=== PATIENT | female | born 2000 | race Caucasian/White ===

== ENCOUNTER 2022-03-03 10:54 | Emergency (ER) | payer OTHER ==
[~2022-03-03] VITALS: Ht 175 cm; Wt 73.0 kg
[2022-03-03 11:00] VITALS: BP 155/77
--- NOTE | 2022-03-03 11:21 | ED Integumentary General ---
General Chief Complaint: Laceration Stated Complaint: L PINKY LAC Nursing Triage Note: PT WOKE UP WITH A LACERATION TO THE LEFT 5TH FINGER. STATES SHE WAS DRUNK AND DOES NOT REMEMBER WHAT HAPPENED. THINKS SHE MIGHT HAVE FELL OFF THE BED AND CUT IT ON A BEER BOTTLE. Source: patient Exam Limitations: no limitations History of Present Illness Date Seen by Provider: Mar 03, 2022 Time Seen by Provider: 11:05 Initial Comments 21 yo female presents to the ER with a complaint of laceration to the left 5th finger - pain and decreased ability to flex the finger. She was at a [employer] last night and is not sure what she cut it on. Friend at the bedside says that she thinks she rolled out of bed and cut her finger on a broken beer bottle. Complains of pain only to the finger. Is noted to have multiple other superficial lacerations to bilateral LE's but has no complaints of pain or other injury or illness. All other ROS reviewed and neg except as stated. Last tetanus 2013. Timing/Duration: other (unknown) Location: hands (left 5th finger) Possible Cause: other (unknown) Associated Symptoms: denies symptoms Allergies and Home Medications Allergies Coded Allergies: No Known Drug Allergies (Unverified , 03/03/22) Patient Home Medication List Home Medication List Reviewed: Yes Review of Systems Review of Systems Constitutional: see HPI Respiratory: no symptoms reported Cardiovascular: no symptoms reported Gastrointestinal: no symptoms reported Musculoskeletal: other (pain in the left 5th finger) Skin: other (laceration) Psychiatric/Neurological: Paresthesia (tip of left 5th finger) All Other Systems Reviewed Negative Unless Noted: Yes Past Icfketa-Asxggd-Hkmcwc Hx Patient Social History Smoking Status: Never a Smoker Substance use?: Yes Substance type: Marijuana Alcohol Use?: Yes Alcohol Frequency: Couple times a week Physical Exam Vital Signs Vital Signs - First Documented 03/03/22 11:00 Temp 36.3 Pulse 81 Resp 16 B/P (MAP) 155/77 (103) Pulse Ox 97 O2 Delivery Room Air Capillary Refill : Less Than 3 Seconds General Appearance: WD/WN, no apparent distress HEENT: PERRL/EOMI Cardiovascular: regular rate, rhythm Respiratory: lungs clear, normal breath sounds, no respiratory distress, no accessory muscle use Extremities: normal range of motion, other (ecchymoses circumferential left 5th finger; laceration 5cm lateral aspect of 5th finger, subcutaneous fat visible in the wound, no active bleeding) Neurologic/Psychiatric: alert, normal mood/affect, oriented x 3 Skin: normal color, warm/dry Procedures/Interventions Wound Location: Upper Extremities Other Wound Location left hand lateral edge of 5th finger Wound Length (cm): 5 Wound's Depth, Shape: superficial, irregular, sub Q Wound Explored: clean Irrigated w/ Saline (ccs): 250 Betadine Prep?: Yes Anesthesia: 1% Lidocaine Volume Anesthetic (ccs): 4 Wound Debrided: minimal Suture: Ethlion Suture Size: 4-0 Number of Sutures: 9 Layer Closure?: 1 Number Deep Layer Sutures: 0 Sterile Dressing Applied?: Yes Progress/Results/Core Measures Results/Orders My Orders Orders - CORNELIUS CODY MD Lidocaine 1% Inj 20 Ml (Xylocaine 1% Inj (03/03/22 11:45) Lidocaine 1% Inj 20 Ml (Xylocaine 1% Inj (03/03/22 11:35) Dipht,Pertuss(Acell),Tet Adult (Boostrix (03/03/22 12:15) Ibuprofen Tablet (Motrin Tablet) (03/03/22 12:15) Hand, Left, 2 Views (03/03/22 12:04) Medications Given in ED Current Medications Medications Dose Ordered Sig/Rafa Route Start Time Stop Time Status Last Admin Dose Admin Diphtheria/ Tetanus/Acell Pertussis 0.5 ml ONCE ONCE IM 03/03/22 12:15 03/03/22 12:16 DC 03/03/22 12:09 0.5 ML Lidocaine HCl 20 ml ONCE ONCE INJ 03/03/22 11:45 03/03/22 11:46 DC 03/03/22 12:09 20 ML Vital Signs/I&O 03/03/22 11:00 Temp 36.3 Pulse 81 Resp 16 B/P (MAP) 155/77 (103) Pulse Ox 97 O2 Delivery Room Air Blood Pressure Mean: 103 Diagnostic Imaging Diagonstic Imaging: Xray Comments [facility], [place] NAME: VALERI GRAHAM Christiano [facility] REC#: [id number] PT STATUS: REG ER : 2002 PHYSICIAN: CORNELIUS CODY MD ADMIT DATE: 08/20/22/ER Draft Date of Exam:03/03/22 HAND, LEFT, 2 VIEWS Indication: Laceration to left 5th finger. Time of Exam: 12:09 PM 2 views of the left hand were obtained. The metacarpals are intact. Phalanges appear intact. No fractures are identified. Impression: No acute abnormality is detected. Dictated on workstation # [id number] Dict: 03/03/22 1221 Trans: 03/03/22 1223 [facility] [id number] Interpreted by: RASHEL MURO MD Electronically signed by: Departure Impression Primary Impression: laceration left 5th finger Disposition: HOME, SELF-CARE Condition: Stable Departure-Patient Inst. Decision time for Depature: 12:10 Referrals: [facility],LOCAL PHYSICIAN (PCP) Primary Care Physician Patient Instructions: Laceration Repair With Stitches (DC) Add. Discharge Instructions: Keep the dressing in place for the next 12-24 hours. You can wash it gently with soap and water starting tomorrow. A little antibiotic ointment under the dressing daily for 2/4 days. Do not swim at all or submerge in dishwater for the next 5 days. If it starts to look infected, swell, turn red, drain pus or streak up your hand, please come back to the Emergency Department for re-evaluation and antibiotics. Ibuprofen, 800mg (4 over the counter pills) every 8 hours with food as needed for pain. Ice for swelling. Stitches come out in 12-14 days. You can come back to the Emergency Department to get these out, it is part of this visit. CORNELIUS CODY MD Mar 03, 2022 11:21
[2022-03-03] MEDS ORDERED: LIDOCAINE 1% INJ 20 ML VIAL ONE (11:35)
[2022-03-03] MEDS ORDERED: LIDOCAINE 1% INJ 20 ML VIAL INJ ONE (11:45)
[2022-03-03] MEDS ORDERED: TETANUS,DIPTH,PERTUSS P/F (BOOSTRIX) 0.5 ML VIAL IM ONE (12:15)
[2022-03-03] MEDS ORDERED: IBUPROFEN 800 MG (MOTRIN) TAB PO ONE (12:15)
--- NOTE | 2022-03-03 12:24 | Diagnostic Imaging Report ---
Indication: Laceration to left 5th finger. Time of Exam: 12:09 PM 2 views of the left hand were obtained. The metacarpals are intact. Phalanges appear intact. No fractures are identified. Impression: No acute abnormality is detected. Dictated by: Dictated on workstation # [id number]
== END 2022-03-03 12:34 | disposition home or self-care (01) ==
LOC: ER 10:57
DX: S61.217A Laceration without foreign body of left little finger without damage to nail, initial encounter (principal); Z23 Encounter for immunization; Z28.310 Unvaccinated for COVID-19; W26.8XXA Contact with other sharp object(s), not elsewhere classified, initial encounter; Y92.89 Other specified places as the place of occurrence of the external cause
CPT/HCPCS: 12001; 73120; 90715

== ENCOUNTER 2022-03-05 16:53 | Emergency (ER) | payer OTHER ==
[2022-03-05] MEDS ORDERED: DOXY100T2 PO (17:32)
--- NOTE | 2022-03-05 17:34 | ED Integumentary General ---
General Chief Complaint: Skin/Wound Problems Stated Complaint: L PINKY FINGER LAC INFECTION Source: patient Exam Limitations: no limitations History of Present Illness Date Seen by Provider: Mar 05, 2022 Time Seen by Provider: 17:29 Initial Comments To ER with concern of infection to the laceration to the ulnar side of the pinky finger laceration left hand 2 to 3 days ago. Timing/Duration: just prior to arrival Severity: moderate Possible Cause: no cause identified Associated Symptoms: denies symptoms Allergies and Home Medications Allergies Coded Allergies: No Known Drug Allergies (Unverified , 03/03/22) Patient Home Medication List Home Medication List Reviewed: Yes Doxycycline Hyclate (Doxycycline Hyclate) 100 Mg Tablet, 100 MG PO BID Prescribed by: MACARIO CACERES on 03/05/22 5903 Review of Systems Review of Systems Constitutional: see HPI EENTM: see HPI Respiratory: no symptoms reported Cardiovascular: no symptoms reported Genitourinary: no symptoms reported Musculoskeletal: no symptoms reported Skin: no symptoms reported Past Uzdzklo-Blbrkl-Juwytp Hx Patient Social History Tobacco Use?: No Use of E-Cig and/or Vaping dev: No Substance use?: Yes Substance type: Marijuana Substance frequency: Once in a while Alcohol Use?: Yes Alcohol Frequency: Once in a while Pt feels they are or have been: No Immunizations Up To Date Influenza Vaccine Up-to-Date: No; Not Current Physical Exam Vital Signs Vital Signs - First Documented 03/05/22 17:05 Pulse 63 Resp 14 B/P (MAP) 122/65 (84) Capillary Refill : General Appearance: WD/WN, no apparent distress Respiratory: no respiratory distress, no accessory muscle use Extremities: normal range of motion, non-tender, other (Limited flexion and extension of the pinky finger. Slightly swollen. Erythema is primarily over the ulnar side of the pinky finger at the incision line and extending out about 3 mm from the laceration itself. Sutures remain intact. There is no erythema of the palmar or dorsal surface. Culture of laceration collected. Minimal amount of serosanguineous material at the proximal portion.) Neurologic/Psychiatric: alert, normal mood/affect, oriented x 3 Skin: normal color, warm/dry Skin Problem Location: upper extremities Skin Problem Character: other Procedures/Interventions Suture Size: 4-0 Progress/Results/Core Measures Results/Orders My Orders Orders - MACARIO CACERES APRN Wound Culture (03/05/22 17:29) Vital Signs/I&O 03/05/22 17:05 Pulse 63 Resp 14 B/P (MAP) 122/65 (84) Departure Impression Primary Impression: Wound infection Disposition: 01 HOME, SELF-CARE Condition: Stable Departure-Patient Inst. Decision time for Depature: 17:29 Referrals: NO,LOCAL PHYSICIAN (PCP/Family) Primary Care Physician Patient Instructions: Wound Care (DC) Add. Discharge Instructions: Oral antibiotics as directed, beware they can cause sun sensitivity so avoid tanning beds or obtaining outside in the meantime until you stop the antibiotics. Expect about 2 days before you notice improvement. Return to ER for any worsening symptoms. If this does develop into an infection we may need to remove some or all of the stitches early which will cause a longer healing time but may be necessary in the setting of infection. Culture is pending and that will take about 48 hours to come back. Try to leave this open to air during the day and cover it at night It is very important that you follow up with a physician as discussed during the visit today. Failure to adhere to your follow-up instructions may lead to severe disability, injury, or so please make sure to keep your appointments or obtain one as requested. All discharge instructions reviewed with patient and/or family. Voiced understanding. Scripts Doxycycline Hyclate (Doxycycline Hyclate) 100 Mg Tablet 100 MG PO BID, #14 TAB 0 Refills Prov: MACARIO CACERES APRN 03/05/22 MACARIO CACERES APRN Mar 05, 2022 17:34
[2022-03-05 17:42] VITALS: BP 122/65
== END 2022-03-05 17:40 | disposition home or self-care (01) ==
LOC: EDUNIT# 16:53 → ER 16:54
DX: S61.317A Laceration without foreign body of left little finger with damage to nail, initial encounter (principal); L08.9 Local infection of the skin and subcutaneous tissue, unspecified; Z28.310 Unvaccinated for COVID-19; X58.XXXA Exposure to other specified factors, initial encounter
CPT/HCPCS: 87070; 87205; 99282

== ENCOUNTER 2022-03-16 09:24 | Emergency (ER) | payer OTHER ==
[~2022-03-16] VITALS: Ht 175.3 cm; Wt 74.8 kg
[~2022-03-16 09:24] MED LIST: DOXY100T2 PO
[2022-03-16 09:31] VITALS: BP 124/76
== END 2022-03-16 09:40 | disposition home or self-care (01) ==
LOC: EDUNIT# 09:24 → ER 09:26
DX: Z48.02 Encounter for removal of sutures (principal); Z28.310 Unvaccinated for COVID-19

== ENCOUNTER 2022-04-28 01:18 | Emergency (ER) | payer OTHER ==
[~2022-04-28] VITALS: Ht 175 cm; Wt 74.8 kg
[2022-04-28 01:22] VITALS: BP 130/100
[2022-04-28] MEDS ORDERED: ONDANSETRON 4 MG/2 ML (SDV) Z0FRAN ONE (01:25)
--- NOTE | 2022-04-28 02:07 | ED General ---
General Chief Complaint: Substance Abuse Stated Complaint: INTOXICATED Nursing Triage Note: brought in by [facility] for etoh intoxication. pt covered in vomit. Source of Information: EMS Exam Limitations: Intoxication History of Present Illness Date Seen by Provider: Apr 28, 2022 Time Seen by Provider: 01:22 Initial Comments PT ARRIVES VIA EMS FROM LOCAL BAR PT IS INTOXICATED AND VOMITING NO REPORTED INJURY NO OTHER INFORMATION OBTAINABLE AT THIS TIME. Allergies and Home Medications Allergies Coded Allergies: No Known Drug Allergies (Unverified , 03/03/22) Patient Home Medication List Home Medication List Reviewed: Yes Doxycycline Hyclate (Doxycycline Hyclate) 100 Mg Tablet, 100 MG PO BID Prescribed by: MACARIO CACERES on 03/05/22 783 Review of Systems Review of Systems Constitutional: other (PER HPI) Gastrointestinal: vomiting Past Cwqghwl-Vcvrdf-Kigpbp Hx Patient Social History Tobacco Use?: Yes Substance use?: No Alcohol Use?: Yes Pt feels they are or have been: No Past Medical History Surgery/Hospitalization HX: pots, anxiety, depression Physical Exam Vital Signs Vital Signs - First Documented 04/28/22 01:22 Temp 36.7 Pulse 94 Resp 18 B/P (MAP) 130/100 (110) Pulse Ox 97 O2 Delivery Room Air Capillary Refill : Less Than 3 Seconds Height, Weight, BMI Height: '" Weight: lbs. oz. kg; 24.00 BMI Method:Actual General Appearance: Other (PT IS COVERED IN VOMIT, REEKS OF ALCOHOL AND APPEARS INTOXICATED. SHE IS BELLIGERENT AND UNCOOPERATIVE. ) HEENT: PERRL/EOMI Respiratory: Normal Breath Sounds, No Accessory Muscle Use, No Respiratory Distress Cardiovascular: Regular Rate, Rhythm Gastrointestinal: Soft Extremity: Normal Capillary Refill, Normal Inspection, Non Tender Neurologic/Psychiatric: Other (PT IS AWAKE, SPEECH IS FAIRLY CLEAR. U NCOOPERATIVE FOR EXAM AND HISTORY. APPEARS INTOXICATED. NO FOCAL DEFICITS. ) Skin: Normal Color, Warm/Dry, Other (NO EXTERNAL EVIDENCE OF TRAUMA. ) Procedures/Interventions Suture Size: 4-0 Progress/Results/Core Measures Suspected Sepsis SIRS Temperature: Pulse: 94 Respiratory Rate: 18 Blood Pressure 130 /100 Mean: 110 Results/Orders My Orders Orders - CHATO OBANDO DO Ondansetron Injection (Zofran Injectio (04/28/22 01:25) Medications Given in ED Current Medications Medications Dose Ordered Sig/Rafa Route Start Time Stop Time Status Last Admin Dose Admin Ondansetron HCl 4 mg STK-MED ONCE .ROUTE 04/28/22 01:25 04/28/22 01:28 DC 04/28/22 01:27 8 MG Vital Signs/I&O 04/28/22 01:22 Temp 36.7 Pulse 94 Resp 18 B/P (MAP) 130/100 (110) Pulse Ox 97 O2 Delivery Room Air Capillary Refill : Less Than 3 Seconds Blood Pressure Mean: 110 Progress Note : Progress Note GIVEN ZOFRAN IV, IV FLUIDS THAT WERE STARTED BY EMS WERE CONTINUED. PT REMAINS BELLIGERENT AND UNCOOPERATIVE, AND STATES SHE WANTS TO LEAVE AND DOES NOT NEED TO BE HERE. UNABLE TO OBTAIN ANY LAB PT IS ABLE TO STAND AND GET INTO WHEELCHAIR, AND SPEECH IS FAIRLY CLEAR. SISTER AND A MULTITUDE OF OTHER FRIENDS IN WAITING ROOM TO TAKE PT HOME. PT LEFT WITHOUT SIGNING AMA FORM. Departure Impression Primary Impression: Acute alcoholic intoxication Disposition: AGAINST MEDICAL ADVICE Condition: Against Medical Advice Departure-Patient Inst. Referrals: NO,LOCAL PHYSICIAN (PCP/Family) Primary Care Physician Patient Instructions: ALCOHOL AND SUBSTANCE ABUSE Add. Discharge Instructions: All discharge instructions reviewed with patient and/or family. Voiced understanding. CHATO OBANDO DO Apr 28, 2022 02:07
== END 2022-04-28 01:38 | disposition left against medical advice (07) ==
LOC: EDUNIT# 01:18 → ER 01:19
DX: F10.129 Alcohol abuse with intoxication, unspecified (principal); Z72.0 Tobacco use

== ENCOUNTER 2022-09-15 05:32 | Observation (INO) | payer OTHER ==
[~2022-09-15] VITALS: Ht 172.7 cm; Wt 71.7 kg
[2022-09-15] MEDS ORDERED: NS IV 1000 ML 1,000 ML IV STA (05:55)
--- NOTE | 2022-09-15 05:55 | ED General ---
General Stated Complaint: PASSED OUT Source of Information: Patient Exam Limitations: Intoxication (CORNELIUS CODY MD) History of Present Illness Date Seen by Provider: Sep 15, 2022 Time Seen by Provider: 05:50 Initial Comments Patient is a 21-year-old female who presents to the emergency room by private vehicle chief complaint multiple syncopal episodes throughout the night. Patient is obviously intoxicated, slurred speech, glassy eyed. She states that she has been drinking and using some marijuana she tells me she has a history of vasovagal syncope. Been cardiac work-up at including echo, tilt table and other testing she cannot remember. She is supposed to be on fludrocortisone and is also on an antidepressant. Denies recent illness. No cough, congestion. No nausea. She states she has "dry mouth". No dysuria, urgency or frequency. No diarrhea. States that she missed her daily medications last evening. Is quite tachycardic with a sinus rhythm in the 140s. Adequate blood pressure and pulse oximetry. Did "pass out" in front of the nurses. This was brief. No altered mentation once awakened. Patient states normally she only has syncopal events once every 2 weeks. Timing/Duration: 12 Hours Severity: Severe Associated Systoms: Shortness of Air, Syncope, Other (dry mouth) (CORNELIUS CODY MD) Allergies and Home Medications Allergies Coded Allergies: No Known Drug Allergies (Unverified , 03/03/22) Patient Home Medication List Home Medication List Reviewed: Yes (CORNELIUS CODY MD) Doxycycline Hyclate (Doxycycline Hyclate) 100 Mg Tablet, 100 MG PO BID Prescribed by: MACARIO CACERES on 03/05/22 1155 Review of Systems Review of Systems Constitutional: see HPI EENTM: no symptoms reported Respiratory: short of breath Cardiovascular: no symptoms reported Gastrointestinal: no symptoms reported Genitourinary: no symptoms reported Musculoskeletal: no symptoms reported Skin: no symptoms reported (CORNELIUS CODY MD) All Other Systems Reviewed Negative Unless Noted: Yes (CORNELIUS CODY MD) Past Kqygpot-Smornl-Izlqoz Hx Past Medical History Surgery/Hospitalization HX: pots, anxiety, depression (CORNELIUS CODY MD) Physical Exam Vital Signs Capillary Refill : Height, Weight, BMI Height: '" Weight: lbs. oz. kg; 24.00 BMI Method:Actual General Appearance: No Apparent Distress, WD/WN Eyes: Bilateral Eye PERRL, Bilateral Eye EOMI, Bilateral Eye Other (injected conjunctivae) Neck: Normal Inspection Respiratory: Lungs Clear, Normal Breath Sounds, No Accessory Muscle Use, No Respiratory Distress Cardiovascular: Regular Rate, Rhythm, Tachycardia (140) Gastrointestinal: Normal Bowel Sounds, Non Tender, Soft Extremity: Normal Capillary Refill, Normal Inspection, Normal Range of Motion, Non Tender Neurologic/Psychiatric: Alert, Oriented x3, Other (obvious intoxication; slurred speech) Skin: Normal Color, Warm/Dry (CORNELIUS CODY MD) Vital Signs Vital Signs - First Documented 09/15/22 05:35 Temp 36.6 Pulse 141 Resp 18 B/P (MAP) 143/100 (114) (CINDY RIBEIRO DO) Procedures/Interventions Suture Size: 4-0 (CORNELIUS CODY MD) Progress/Results/Core Measures Suspected Sepsis SIRS Temperature: Pulse: Respiratory Rate: Laboratory Tests 09/15/22 05:30: Blood Pressure / Mean: Laboratory Tests 09/15/22 05:30: (CORNELIUS CODY MD) SIRS Laboratory Tests 09/15/22 05:30: White Blood Count 6.6 Laboratory Tests 09/15/22 05:30: Creatinine 0.81, Platelet Count 265, Total Bilirubin 0.3 (CINDY RIBEIRO DO) Results/Orders Lab Results Laboratory Tests Test 09/15/22 05:30 09/15/22 06:05 Range/Units My Orders Orders - CORNELIUS CODY MD Ekg Tracing (09/15/22 05:55) Cbc With Automated Diff (09/15/22 05:55) Comprehensive Metabolic Panel (09/15/22 05:55) Magnesium (09/15/22 05:55) Drug Screen Stat (Urine) (09/15/22 05:55) Urine Bedside (09/15/22 05:55) Urinalysis (09/15/22 05:55) Ns Iv 1000 Ml (Sodium Chloride 0.9%) (09/15/22 05:55) Vital Signs/I&O Capillary Refill : (CORNELIUS CODY MD) Lab Results Laboratory Tests Test 09/15/22 05:30 09/15/22 05:50 09/15/22 06:05 Range/Units White Blood Count 6.6 4.3-11.0 10^3/uL Red Blood Count 4.21 3.80-5.11 10^6/uL Hemoglobin 12.9 11.5-16.0 g/dL Hematocrit 38 35-52 % Mean Corpuscular Volume 91 80-99 fL Mean Corpuscular Hemoglobin 31 25-34 pg Mean Corpuscular Hemoglobin Concent 34 32-36 g/dL Red Cell Distribution Width 13.6 10.0-14.5 % Platelet Count 265 130-400 10^3/uL Mean Platelet Volume 9.9 9.0-12.2 fL Immature Granulocyte % (Auto) 0 % Neutrophils (%) (Auto) 42 42-75 % Lymphocytes (%) (Auto) 51 H 12-44 % Monocytes (%) (Auto) 5 0-12 % Eosinophils (%) (Auto) 1 0-10 % Basophils (%) (Auto) 1 0-10 % Neutrophils # (Auto) 2.8 1.8-7.8 10^3/uL Lymphocytes # (Auto) 3.4 1.0-4.0 10^3/uL Monocytes # (Auto) 0.3 0.0-1.0 10^3/uL Eosinophils # (Auto) 0.1 0.0-0.3 10^3/uL Basophils # (Auto) 0.0 0.0-0.1 10^3/uL Immature Granulocyte # (Auto) 0.0 0.0-0.1 10^3/uL Sodium Level 144 135-145 MMOL/L Potassium Level 3.1 L 3.6-5.0 MMOL/L Chloride Level 109 H 98-107 MMOL/L Carbon Dioxide Level 21 21-32 MMOL/L Anion Gap 14 5-14 MMOL/L Blood Urea Nitrogen 8 7-18 MG/DL Creatinine 0.81 0.60-1.30 MG/DL Estimat Glomerular Filtration Rate 107 BUN/Creatinine Ratio 10 Glucose Level 128 H 70-105 MG/DL Calcium Level 9.0 8.5-10.1 MG/DL Corrected Calcium 8.5-10.1 MG/DL Magnesium Level 1.9 1.6-2.4 MG/DL Total Bilirubin 0.3 0.1-1.0 MG/DL Aspartate Amino Transf (AST/SGOT) 22 5-34 U/L Alanine Aminotransferase (ALT/SGPT) 16 0-55 U/L Alkaline Phosphatase 73 40-136 U/L Total Protein 7.4 6.4-8.2 GM/DL Albumin 4.8 H 3.2-4.5 GM/DL Serum Test, Qualitative NEGATIVE NEGATIVE Urine Color YELLOW Urine Clarity CLEAR Urine pH 6.0 5-9 Urine Specific [place] 1.025 H 1.016-1.022 Urine Protein NEGATIVE NEGATIVE Urine Glucose (UA) TRACE H NEGATIVE Urine Ketones NEGATIVE NEGATIVE Urine Nitrite NEGATIVE NEGATIVE Urine Bilirubin NEGATIVE NEGATIVE Urine Urobilinogen 0.2 < = 1.0 MG/DL Urine Leukocyte Esterase NEGATIVE NEGATIVE Urine RBC (Auto) NEGATIVE NEGATIVE Urine RBC RARE /HPF Urine WBC RARE /HPF Urine Squamous Epithelial Cells RARE /HPF Urine Crystals NONE /LPF Urine Bacteria NEGATIVE /HPF Urine Casts NONE /LPF Urine Mucus NEGATIVE /LPF Urine Culture Indicated NO Urine Opiates Screen NEGATIVE NEGATIVE Urine Oxycodone Screen NEGATIVE NEGATIVE Urine Methadone Screen NEGATIVE NEGATIVE Urine Propoxyphene Screen NEGATIVE NEGATIVE Urine Barbiturates Screen NEGATIVE NEGATIVE Ur Tricyclic Antidepressants Screen NEGATIVE NEGATIVE Urine Phencyclidine Screen NEGATIVE NEGATIVE Urine Amphetamines Screen NEGATIVE NEGATIVE Urine Methamphetamines Screen NEGATIVE NEGATIVE Urine Benzodiazepines Screen NEGATIVE NEGATIVE Urine Cocaine Screen NEGATIVE NEGATIVE Urine Cannabinoids Screen POSITIVE H NEGATIVE My Orders Orders - CINDY RIBEIRO DO Hcg,Qualitative Serum (09/15/22 06:33) Diltiazem Injection (Cardizem Injection) (09/15/22 06:45) Metoprolol Succinate (Xl) Tab (Toprol Xl (09/15/22 07:00) Potassium Chloride (Tablet) (K Dur Table (09/15/22 07:00) Ed Admission (Communication) (09/15/22 07:49) Magnesium (09/15/22 07:52) Vital Signs/I&O 09/15/22 05:35 Temp 36.6 Pulse 141 Resp 18 B/P (MAP) 143/100 (114) (CINDY RIBEIRO DO) Progress Note : Time: 06:11 Progress Note care passed to Dr Ribeiro with workup pending. (CORNELIUS CODY MD) ECG Comment Sinus tachycardia with a rate of 137 bpm. Intervals. Normal axis. T wave inversions in lead III and aVF. No other obvious ST or T wave abnormality. No ectopy. No STEMI. (CINDY RIBEIRO DO) Departure Communication (Admissions) I assumed care of the patient at shift change, 0600. She is tachycardic but states this is normal for her. She does endorse she is supposed to be taking metoprolol, 25 mg daily but has not done so for the last couple of days. She states "I knew there is nothing ICU for me. I do not want to be here." She tells me she is very familiar with the syncopal episodes related to her tachycardia and is not worried about them whatsoever. She has reliable cardio logy follow-up. She denies any chest pain, shortness of breath, abdominal pain. She has had no fevers and there is no indication that this is from an infectious source. She was likely dehydrated related to alcohol use so she was given IV fluids with modest improvement in her heart rate overall. Did let her get up to go to the restroom and she again had a dizzy episode where she fell before catching herself on her hands and then laid in the floor. I spoke to her at length and recommended admission. She was reluctant at first but after discussion with her family and after she was notified that we had a wafer substrate tester on staff they are agreeable to stay for further treatment recommendations. She has been given metoprolol and potassium at this point and again heart rate is trending down overall. Her blood pressure has been stable throughout her time in the emergency department. I spoke with Dr. Du at [phone] and she agrees to admission. I will write bridging orders. I spoke with Dr. Latif at 0750 and he agrees to consultation. No new orders at this time. (CINDY RIBEIRO DO) Impression Primary Impression: Sinus tachycardia Additional Impressions: Syncope Qualified Codes: R55 - Syncope and collapse Hypokalemia Disposition: ADMITTED INPATIENT Condition: Stable Admissions Decision to Admit Reason: Admit from ER (General) (CINDY RIBEIRO DO) Departure-Patient Inst. Referrals: NO,LOCAL PHYSICIAN (PCP/Family) Primary Care Physician Patient Instructions: Syncope (Fainting) (DC), Tachycardia Add. Discharge Instructions: It is important that you take your metoprolol every day. Your current elevated heart rate and passing out episodes may be related to not taking this. Refrain from caffeine use, stimulant use like energy drinks. Follow-up with your wafer substrate tester within 1 week or further discussion of your symptoms. Return to the emergency department for any severe concerns. CORNELIUS CODY MD Sep 15, 2022 05:55 CINDY RIBEIRO DO Sep 15, 2022 07:17
[2022-09-15 06:05] LABS: BASOPHILS % (AUTO) 1 % (0-10); EOSINOPHILS # (AUTO) 0.1 10^3/uL (0.0-0.3); EOSINOPHILS % (AUTO) 1 % (0-10); HEMATOCRIT 38 % (35-52); HEMOGLOBIN 12.9 g/dL (11.5-16.0); LYMPHOCYTES # (AUTO) 3.4 10^3/uL (1.0-4.0); LYMPHOCYTES % (AUTO) 51 % (12-44); MEAN CORPUSCULAR HEMOGLOBIN 31 pg (25-34); MEAN CORPUSCULAR HGB CONC 34 g/dL (32-36); MEAN CORPUSCULAR VOLUME 91 fL (80-99); MEAN PLATELET VOLUME 9.9 fL (9.0-12.2); MONOCYTES # (AUTO) 0.3 10^3/uL (0.0-1.0); MONOCYTES % (AUTO) 5 % (0-12); NEUTROPHILS # (AUTO) 2.8 10^3/uL (1.8-7.8); NEUTROPHILS % (AUTO) 42 % (42-75); PLATELET COUNT 265 10^3/uL (130-400); WHITE BLOOD COUNT 6.6 10^3/uL (4.3-11.0)
[2022-09-15 06:13] LABS: BILIRUBIN,URINE NEGATIVE (NEGATIVE); CLARITY,URINE CLEAR; COLOR,URINE YELLOW; GLUCOSE, URINE (UA) TRACE (NEGATIVE); KETONES,URINE NEGATIVE (NEGATIVE); LEUKOCYTE ESTERASE ,URINE NEGATIVE (NEGATIVE); NITRITE,URINE NEGATIVE (NEGATIVE); PROTEIN,URINE NEGATIVE (NEGATIVE)
[2022-09-15 06:14] LABS: ALBUMIN 4.8 GM/DL (3.2-4.5); CHLORIDE 109 MMOL/L (98-107); POTASSIUM 3.1 MMOL/L (3.6-5.0); SODIUM 144 MMOL/L (135-145)
[2022-09-15 06:17] LABS: GLUCOSE 128 MG/DL (70-105); TOTAL PROTEIN 7.4 GM/DL (6.4-8.2)
[2022-09-15 06:18] LABS: CARBON DIOXIDE 21 MMOL/L (21-32)
[2022-09-15 06:19] LABS: BILIRUBIN,TOTAL 0.3 MG/DL (0.1-1.0)
[2022-09-15 06:20] LABS: ALKALINE PHOSPHATASE 73 U/L (40-136); CREATININE SERUM 0.81 MG/DL (0.60-1.30); GFR ESTIMATED 107
[2022-09-15 06:21] LABS: BACTERIA,URINE NEGATIVE /HPF; RBC,URINE RARE /HPF; SQUAMOUS EPITHELIAL CELL,UR RARE /HPF; WBC,URINE RARE /HPF
[2022-09-15 06:22] LABS: BUN/CREATININE RATIO 10
[2022-09-15 06:23] LABS: ALANINE AMINOTRANSFERASE 16 U/L (0-55)
[2022-09-15 06:24] LABS: MAGNESIUM 1.9 MG/DL (1.6-2.4)
[2022-09-15 06:27] LABS: AMPHETAMINE SCREEN, URINE NEGATIVE (NEGATIVE); BARBITURATE SCREEN URINE NEGATIVE (NEGATIVE); BENZODIAZEPINES SCREEN URINE NEGATIVE (NEGATIVE); CANNABINOID SCREEN, URINE POSITIVE (NEGATIVE); COCAINE SCREEN URINE NEGATIVE (NEGATIVE); METHADONE STAT NEGATIVE (NEGATIVE); OPIATE SCREEN URINE NEGATIVE (NEGATIVE); OXYCODONE STAT NEGATIVE (NEGATIVE); PROPOXYPHENE STAT NEGATIVE (NEGATIVE); TRICYCLIC ANTIDEPRESSANTS SCRE NEGATIVE (NEGATIVE)
[2022-09-15] MEDS ORDERED: KCL 20 MEQ TAB (K-DUR) PO ONE (07:00)
[2022-09-15 08:51] VITALS: BP 125/69
[2022-09-15] MEDS ORDERED: LORazepam 0.5 MG (ATIVAN) TABLET PO ONE (10:00)
[2022-09-15] MEDS ORDERED: meTOprolol TARTRATE 25 MG (LOPRESSOR) TABLET PO ONE (10:00)
--- NOTE | 2022-09-15 10:09 | History & Physical-Hospitalist ---
History of Present Illness HPI/Chief Complaint Patient is a 21-year-old female with a history of sinus tachycardia who presented to the emergency department due to syncopal episode. She endorsed alcohol use last night and appeared intoxicated to the emergency department on arrival. She has a history of a significant cardiac work-up at [facility] where she had an echo and tilt table test done. Apparently her tilt table test was positive and she was supposed to be on fludrocortisone. She also was supposed to be on metoprolol. She did miss at least last night's dose though history varies when she last took it. They attempted to discharge home from the emergency department after giving a dose of metoprolol and IV fluids but when she attempted to ambulate she had another near syncopal episode. When I examined patient she appeared to be in the middle of a panic attack and is unable to provide much history. She complained of tingling in her fingers and her feet. Source: patient Date Seen 09/15/22 Time Seen by a Provider: 09:50 Attending Physician No,Local Physician PCP Admitting Physician: Sujey Mooney MD Attending Physician: Sujey Mooney MD Referring Physician Date of Admission Sep 15, 2022 at 09:00 Home Medications & Allergies Home Medications Reviewed patient Home Medication Reconciliation performed by pharmacy medication reconciliations residential gas heat technician and/or nursing. Patients Allergies have been reviewed. Allergies Allergies Coded Allergies No Known Drug Allergies (Unverified03/03/22) Past Sfxdawr-Nybwwd-Viugxx Hx Immunizations Up To Date Tetanus Booster (TDap): Less Than 5 Years Current Status status: No Communicates: Verbally Primary Language: Armenian Preferred Spoken Language: Armenian Is interpretation needed?: No Review of Systems Constitutional: see HPI Physical Exam Physical Exam Vital Signs Vital Signs - First Documented 09/15/22 09/15/22 05:35 08:45 Temp 36.6 Pulse 141 Resp 18 B/P (MAP) 143/100 (114) Pulse Ox 97 O2 Delivery Room Air Capillary Refill : NONE Height, Weight, BMI Height: '" Weight: lbs. oz. kg; 24.04 BMI Method:Actual General Appearance: No Apparent Distress, Anxious, Thin Respiratory: Lungs Clear, No Accessory Muscle Use, No Respiratory Distress Cardiovascular: No Murmur, Tachycardia (regular rhythm) Gastrointestinal: Normal Bowel Sounds, Non Tender, Soft Extremity: No Calf Tenderness, No Pedal Edema Neurologic/Psychiatric: Alert, Oriented x3, Other (very anxious) Results Results/Procedures Labs Laboratory Tests 09/15/22 05:30 Patient resulted labs reviewed. Assessment/Plan Admission Diagnosis Syncope Admission Status: Observation Assessment and Plan Syncope Sinus Tachycardia Hypokalemia Alcohol use Has been worked up in and was supposed to be on fludrocortisone and metoprolol but none compliant Respond to IVF and metoprolol in the ER at first Potassium replaced in the ER Had another syncopal episode once she got to the floor and HR to the 160s I was at bedside shortly after syncopal episode and appeared to also be having a panic attack Confirmed with telecommunications project manager that she remained in sinus rhythm Transferred to the ICU for sustained tachycardia per cardiology recommends I redose metoprolol and also a one time prn ativan dose I rerounded on the patient around 1100 and feeling much better with HR in the 90s Monitor on telemetry in the ICU Cardiology consulted, appreciate recs Alcohol cessation needed Diagnosis/Problems Diagnosis/Problems (1) Syncope Status: Acute Qualifiers: Syncope type: unspecified Qualified Codes: R55 - Syncope and collapse (2) Hypokalemia Status: Acute (3) Sinus tachycardia Status: Acute (4) Acute alcoholic intoxication Status: Acute Clinical Quality Measures AMI/AHF: ASA po Prior to arrival: SUJEY Gan MD Sep 15, 2022 10:09
[2022-09-15] MEDS ORDERED: NS IV 1000 ML 1,000 ML ONE (10:12)
[2022-09-15] MEDS ORDERED: NS IV 1000 ML 1,000 ML IV SCH (10:15)
--- NOTE | 2022-09-15 10:38 | Tele-ICU Progress Note ---
Subjective Date Seen by a Provider: Sep 15, 2022 Subjective/Events-last exam This virtual visit was conducted using real time audio/video. Thank you for asking us to see this patient for critical care needs due to syncope, alcohol intoxication, sinus tachycardia and urine tox screen positive for cannabinoids. Recent events: PMH:Previous tachycardia work up. PE: Intoxicated. VSS. HR 102 S. Tach. O2 sat 97% on RA HEENT: No obvious masses, adenopathy or JVD. Chest: clear to auscultation. CV: RRR S1 S2 No murmur or added sounds. Abd: Non-tender. Bowel sounds Y. : Unremarkable. Aguirre N. MARKETING COMMUNICATIONS ASSOCIATE/psychiatric: Grossly intact. No obvious focal findings. Extremities: No edema. Capillary refill < 3 seconds. Skin: unremarkable. Results: Decreased K 3.1. No CXR. Available chart/ vitals / labs / images reviewed. Video assessment done using teleICU camera, rest of exam as per RN. A/P: Critical Care: critically ill patient. Cont. IVF, metoprolol. Replace K. Discussed with CÉSAR Gomez. Asked RN to reach out to eICU if any questions or concerns later. Time spent with patient/coordination of care with other health professionals (mins):15 Sepsis Event Evaluation Height, Weight, BMI Height: '" Weight: lbs. oz. kg; 24.04 BMI Method:Actual Exam Exam Patient acknowledged, consented, and participated in this virtual visit which was conducted using real time audio/video Vital Signs Date Time Temp Pulse Resp B/P (MAP) Pulse Ox O2 Delivery O2 Flow Rate FiO2 09/15/22 09:33 97 09/15/22 08:51 37.0 107 20 125/69 (87) 99 Room Air 09/15/22 08:45 98 16 122/66 97 Room Air 09/15/22 05:35 36.6 141 18 143/100 (114) Height & Weight Height: '" Weight: lbs. oz. kg; 24.04 BMI Method:Actual General Appearance: No Apparent Distress, WD/WN Neck: Normal Inspection Respiratory: Lungs Clear, Normal Breath Sounds, No Accessory Muscle Use, No Respiratory Distress Cardiovascular: Regular Rate, Rhythm, Tachycardia (140) Capillary Refill: NONE Extremity: Normal Capillary Refill, Normal Inspection, Normal Range of Motion, Non Tender Neurologic/Psychiatric: Alert, Oriented x3, Other (obvious intoxication; slurred speech) Skin: Normal Color, Warm/Dry Results Lab Laboratory Tests 09/15/22 05:30 Assessment/Plan Assessment/Plan See free text Critical Care: Critically Ill Patient ADRIANNA BRASHER MD Sep 15, 2022 10:38
--- NOTE | 2022-09-15 10:41 | Consultation-Cardiology ---
HPI-Cardiology Cardiology Consultation Date of Consultation 09/15/22 Date of Admission Time Seen by Provider: 10:37 Indication: Syncope HPI 21 years old lady with history of vasovagal syncope. Had multiple syncopal episodes in the past, she was seen by Dr. Sams and had tilt table test. Had POTS, she was on metoprolol and antidepressant. Last night had multiple alcoholic drinks. Today she had multiple syncopal episode and tachycardia with palpitation. Came into the emergency room and he was given IV fluid and continue to have orthostatic syncope and tachycardia. I was called from the floor where she was having episodes of tachycardia and near syncope, transferred her to ICU, patient was fairly anxious, restless. Tachycardic. Denied any chest pain. Home Medications & Allergies Allergies: Coded Allergies: No Known Drug Allergies (Unverified , 03/03/22) Home Medication List Reviewed: Yes RIH-Hobybl-Qxdhgx Hx Patient Social History Marital Status: single Employed/Student: unemployed Have you traveled recently?: No Alcohol Use?: Yes Substance type: Marijuana Past Medical History Discussed below Family Medical History Significant Family History: No Pertinent Family Hx Review of Systems-General Review of Systems Constitutional: see HPI EENTM: no symptoms reported Respiratory: short of breath Cardiovascular: see HPI; No chest pain, No edema, No Hx of Intervention; palpitations, syncope; No vascular heart diseas, No other Gastrointestinal: no symptoms reported Genitourinary: no symptoms reported Musculoskeletal: no symptoms reported Skin: no symptoms reported Psychiatric/Neurological: See HPI, Anxiety, Depressed All Other Systems Reviewed Negative Unless Noted: Yes Reviewed Test Results Reviewed Test Results Lab Laboratory Tests Test 09/15/22 05:30 09/15/22 05:50 09/15/22 06:05 Range/Units White Blood Count 6.6 4.3-11.0 10^3/uL Red Blood Count 4.21 3.80-5.11 10^6/uL Hemoglobin 12.9 11.5-16.0 g/dL Hematocrit 38 35-52 % Mean Corpuscular Volume 91 80-99 fL Mean Corpuscular Hemoglobin 31 25-34 pg Mean Corpuscular Hemoglobin Concent 34 32-36 g/dL Red Cell Distribution Width 13.6 10.0-14.5 % Platelet Count 265 130-400 10^3/uL Mean Platelet Volume 9.9 9.0-12.2 fL Immature Granulocyte % (Auto) 0 % Neutrophils (%) (Auto) 42 42-75 % Lymphocytes (%) (Auto) 51 H 12-44 % Monocytes (%) (Auto) 5 0-12 % Eosinophils (%) (Auto) 1 0-10 % Basophils (%) (Auto) 1 0-10 % Neutrophils # (Auto) 2.8 1.8-7.8 10^3/uL Lymphocytes # (Auto) 3.4 1.0-4.0 10^3/uL Monocytes # (Auto) 0.3 0.0-1.0 10^3/uL Eosinophils # (Auto) 0.1 0.0-0.3 10^3/uL Basophils # (Auto) 0.0 0.0-0.1 10^3/uL Immature Granulocyte # (Auto) 0.0 0.0-0.1 10^3/uL Sodium Level 144 135-145 MMOL/L Potassium Level 3.1 L 3.6-5.0 MMOL/L Chloride Level 109 H 98-107 MMOL/L Carbon Dioxide Level 21 21-32 MMOL/L Anion Gap 14 5-14 MMOL/L Blood Urea Nitrogen 8 7-18 MG/DL Creatinine 0.81 0.60-1.30 MG/DL Estimat Glomerular Filtration Rate 107 BUN/Creatinine Ratio 10 Glucose Level 128 H 70-105 MG/DL Calcium Level 9.0 8.5-10.1 MG/DL Corrected Calcium 8.5-10.1 MG/DL Magnesium Level 1.9 1.6-2.4 MG/DL Total Bilirubin 0.3 0.1-1.0 MG/DL Aspartate Amino Transf (AST/SGOT) 22 5-34 U/L Alanine Aminotransferase (ALT/SGPT) 16 0-55 U/L Alkaline Phosphatase 73 40-136 U/L Total Protein 7.4 6.4-8.2 GM/DL Albumin 4.8 H 3.2-4.5 GM/DL Serum Test, Qualitative NEGATIVE NEGATIVE Urine Color YELLOW Urine Clarity CLEAR Urine pH 6.0 5-9 Urine Specific [place] 1.025 H 1.016-1.022 Urine Protein NEGATIVE NEGATIVE Urine Glucose (UA) TRACE H NEGATIVE Urine Ketones NEGATIVE NEGATIVE Urine Nitrite NEGATIVE NEGATIVE Urine Bilirubin NEGATIVE NEGATIVE Urine Urobilinogen 0.2 < = 1.0 MG/DL Urine Leukocyte Esterase NEGATIVE NEGATIVE Urine RBC (Auto) NEGATIVE NEGATIVE Urine RBC RARE /HPF Urine WBC RARE /HPF Urine Squamous Epithelial Cells RARE /HPF Urine Crystals NONE /LPF Urine Bacteria NEGATIVE /HPF Urine Casts NONE /LPF Urine Mucus NEGATIVE /LPF Urine Culture Indicated NO Urine Opiates Screen NEGATIVE NEGATIVE Urine Oxycodone Screen NEGATIVE NEGATIVE Urine Methadone Screen NEGATIVE NEGATIVE Urine Propoxyphene Screen NEGATIVE NEGATIVE Urine Barbiturates Screen NEGATIVE NEGATIVE Ur Tricyclic Antidepressants Screen NEGATIVE NEGATIVE Urine Phencyclidine Screen NEGATIVE NEGATIVE Urine Amphetamines Screen NEGATIVE NEGATIVE Urine Methamphetamines Screen NEGATIVE NEGATIVE Urine Benzodiazepines Screen NEGATIVE NEGATIVE Urine Cocaine Screen NEGATIVE NEGATIVE Urine Cannabinoids Screen POSITIVE H NEGATIVE Physical Exam Physical Exam Vital Signs Vital Signs - First Documented 09/15/22 09/15/22 05:35 08:45 Temp 36.6 Pulse 141 Resp 18 B/P (MAP) 143/100 (114) Pulse Ox 97 O2 Delivery Room Air Capillary Refill : NONE Height, Weight, BMI Height: '" Weight: lbs. oz. kg; 24.04 BMI Method:Actual General Appearance: No Apparent Distress, WD/WN Eyes: Bilateral Eye PERRL, Bilateral Eye EOMI, Bilateral Eye Other (injected conjunctivae) Neck: Normal Inspection Respiratory: Lungs Clear, Normal Breath Sounds, No Accessory Muscle Use, No Respiratory Distress Cardiovascular: Regular Rate, Rhythm, Tachycardia (140) Gastrointestinal: Normal Bowel Sounds, Non Tender, Soft Extremity: Normal Capillary Refill, Normal Inspection, Normal Range of Motion, Non Tender Neurologic/Psychiatric: Alert, Oriented x3, Other (obvious intoxication; slurred speech) Skin: Normal Color, Warm/Dry A/P-Cardiology Admission Diagnosis Syncope POTS Sinus tachycardia Anxiety Assessment/Plan Recurrent syncope, had history of POTS and vasovagal syncope. Currently in sinus tachycardia I will evaluate 2D echo, give her IV fluid. And restart metoprolol and monitor tolerance and response Educated about avoiding alcohol and energy drink and caffeine Sinus tachycardia, inappropriate sinus tachycardia with syncope Starting low-dose beta-blockers and evaluate tolerance and response Palpitation, secondary to tachycardia Anxiety, depression, managed by primary team Clinical Quality Measures AMI/AHF: ASA po Prior to arrival: RAMILA Hooker MD Sep 15, 2022 10:41
[2022-09-15] MEDS ORDERED: meTOprolol TARTRATE 25 MG (LOPRESSOR) TABLET PO SCH (21:00)
== END 2022-09-15 15:05 | disposition left against medical advice (07) ==
LOC: EDUNIT# 05:32 → ER 05:34 → 4TH 09:00 → ICU 10:03
PROVIDERS: ADMIT Family Medicine; ATTEND Family Medicine
DX: R55 Syncope and collapse (principal); R00.0 Tachycardia, unspecified; E87.5 Hyperkalemia; F10.129 Alcohol abuse with intoxication, unspecified; F41.9 Anxiety disorder, unspecified; G90.A Postural orthostatic tachycardia syndrome [POTS]
CPT/HCPCS: 80053; 80306; 81000; 83735; 84443; 84703; 85025; 93005; 99283; C8929; G0378; 36415; 93306